=== PATIENT | male | born 1985 | race Hispanic/Latino ===

== ENCOUNTER 2023-11-21 11:57 | Emergency (ER) | payer OTHER ==
[2023-11-21] MEDS: Diphtheria,Pertussis(Acell),Tetanus Vaccine 0.5 ML Syringe IM ONE (13:22)
[2023-11-21] MEDS: Lidocaine 1% with EPINEPHrine 1:200,000 30 ML SDV INFILT STA (13:23)
== END 2023-11-21 14:52 | disposition home or self-care (01) ==
LOC: MW.ED 11:57
DX: S61.412A Laceration without foreign body of left hand, initial encounter (principal); Z23 Encounter for immunization; W29.0XXA Contact with powered kitchen appliance, initial encounter
CPT/HCPCS: 12001; 73130; 90471; 90715; 96372; 99283; J1670; J3490